=== PATIENT | male | born 1940 | race African-American/Black ===

== ENCOUNTER 2017-03-21 13:26 | Outpatient (CLI) | payer MEDICARE | END 2017-03-21 13:27 | disposition home or self-care (01) | LOC: BICRAD 13:26 | PROVIDERS: ATTEND Internal Medicine | DX: I10 Essential (primary) hypertension (principal) | CPT/HCPCS: 71046 ==

== ENCOUNTER 2019-02-11 08:32 | Outpatient (CLI) | payer MEDICARE ==
--- NOTE | 2019-02-11 10:37 | RAD ---
RIGHT KNEE 4 VIEWS: Date: 02/11/19 HISTORY: Knee pain x1 month. FINDINGS: There are marked arthritic changes of the knee. There is severe joint space narrowing of the patellof emoral joint space. There is spurring of the medial and lateral compartments. No acute bony changes. IMPRESSION: Marked arthritic changes of the knee. Changes are particularly pronounced at the patellofemoral joint level. POS: [facility]
--- NOTE | 2019-02-11 10:39 | RAD ---
LUMBAR SPINE 2 VIEWS: Date: 02/11/19 HISTORY: Back pain. COMPARISON: 03/31/04. FINDINGS: Mild levoscoliosis. Minimal Grade I anterolisthesis of L4 on L5 with some disc space narrowing. Multi level disc osteophytes. IMPRESSION: Mild levoscoliosis with Grade I anterolisthesis of L4 on L5 with some associated narrowing. Generaliz ed spondylosis. POS: [facility]
== END 2019-02-11 08:33 | disposition home or self-care (01) ==
LOC: BICRAD 08:32
PROVIDERS: ATTEND Internal Medicine
DX: M54.9 Dorsalgia, unspecified (principal); M17.11 Unilateral primary osteoarthritis, right knee; M41.9 Scoliosis, unspecified; M43.16 Spondylolisthesis, lumbar region; M47.816 Spondylosis without myelopathy or radiculopathy, lumbar region
CPT/HCPCS: 72100